=== PATIENT | female | born 1975 | race Caucasian/White ===

== ENCOUNTER 2020-08-22 08:24 | Emergency (ER) | payer SELFPAY ==
[2020-08-22] MEDS ORDERED: TORAdol 30 mg Injection ONE (08:35)
[2020-08-22] MEDS ORDERED: TORAdol 30 mg Injection IM ONE (08:35)
--- NOTE | 2020-08-22 09:01 | ERPHSYRPT ---
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 This is been present for several weeks or months usually relieved by OTC meds. The pain is primarily in the low back that radiates down the right leg and into the right foot she [facility] they did an x-ray of her foot but no x-ray of her lumbar spine she has no bowel or bright bladder problems and she denies . Timing/Duration: gradual onset, worse Method of Injury: unknown Quality: radiating, stabbing Back Pain Location: lumbar spine, paraspinous muscles Back Pain Radiation: buttocks, upper legs (right) Severity of Pain-Max: severe Severity of Pain-Current: moderate Modifying Factors: Improves With: immobilization, pain medication Associated Symptoms: numbness in legs/feet (right), muscle spasms, No urinary incontinence, No loss of bowel control, No constipation, No problems urinating Previous symptoms: same symptoms as today Allergies/Adverse Reactions: tramadol Allergy (Severe, Verified 08/22/20 08:41) anaphalactic Home Medications: Aspirin EC 81 mg [Ecotrin 81 mg] 81 mg PO DAILY 08/22/20 [History] Gabapentin 300 mg PO UD 08/22/20 [History] Travel Risk - International Travel Have you traveled outside of the country in past 3 weeks: No - Coronavirus Screening Are you exhibiting any of the following symptoms?: No Close contact with a COVID-19 positive Pt in past 14-21 Days: No - Review of Systems Constitutional: No Fever, No Chills Eyes: No Symptoms Ears, Nose, & Throat: No Symptoms Respiratory: No Cough, No Dyspnea Cardiac: No Chest Pain, No Edema, No Syncope Abdominal/Gastrointestinal: No Abdominal Pain, No Nausea, No Vomiting, No Diarrhea Genitourinary Symptoms: No Dysuria Musculoskeletal: Back Pain, No Neck Pain Skin: No Rash Neurological: Gait Changes, Parasthesia, No Dizziness, No Focal Weakness, No Sensory Changes Psychological: No Symptoms Endocrine: No Symptoms All Other Systems: Reviewed and Negative - Past Medical History Pertinent Past Medical History: Yes Endocrine Medical History: Diabetes Type II Musculoskeletal History: Fibromyalgia Other Medical History: factor 5 laden - Past Surgical History Past Surgical History: Yes Gastrointestinal: Appendectomy Female Surgical History: Section - Social History Smoking Status: Current every day smoker Exposure to second hand smoke: Yes Drug Use: none Patient Lives Alone: Yes - Female History Hx Now: No - Nursing Vital Signs Nursing Vital Signs: Initial Vital Signs Temperature 98.9 F 08/22/20 08:27 Pulse Rate 126 H 08/22/20 08:27 Blood Pressure 180/101 08/22/20 08:27 O2 Sat by Pulse Oximetry 98 08/22/20 08:27 Pain Scale Pain Intensity [Posterior Back 10 ] Pain Intensity 8 - Physical Exam General Appearance: moderate distress, alert Eye Exam: PERRL/EOMI, eyes nml inspection Neck Exam: normal inspection, non-tender, supple, full range of motion, No meningismus, No midline tenderness Respiratory Exam: normal breath sounds, lungs clear, No respiratory distress Cardiovascular Exam: regular rate/rhythm, normal heart sounds Gastrointestinal Exam: soft, No tenderness, No mass Back Exam: vertebral tenderness, decreased range of motion, muscle spasm, point tenderness, other (Lateral straight leg raising positive especially on the right.) Extremity Exam: normal inspection, normal range of motion, No calf tenderness, No pedal edema Neurologic Exam: alert, oriented x 3, cooperative, 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, normal mood/affect, sensation nml, abnormal gait, No nml station & gait, No motor deficits Skin Exam: normal color, warm, dry, No rash SpO2: 98 - Course Nursing assessment & vital signs reviewed: Yes - CT Exams Lumbar Spine CT Interpretation: Other (CT scan shows a large broad-based disc osteophyte complex seen at the L4-S1 levels slightly effacing the thecal sac and producing bilateral foraminal stenosis) Ordered Tests: Active Orders 24 hr Category Date Time Status LUMBAR SPINE W/O [CT] Routine Exams 08/22/20 10:02 Completed CULTURE,URINE Stat Lab 08/22/20 08:39 Received HCG,QUALITATIVE URINE Stat Lab 08/22/20 09:37 Completed UA W/RFX UR CULTURE Stat Lab 08/22/20 08:39 Completed Medication Summary Discontinued Medications Generic Name Dose Route Start Last Admin Trade Name Kael PRN Reason Stop Dose Admin Fentanyl Citrate 100 mcg 08/22/20 09:22 08/22/20 09:28 Sublimaze 100 Mcg/2 Ml IM 08/22/20 09:23 100 mcg STAT ONE Administration Fentanyl Citrate Confirm 08/22/20 09:27 Sublimaze 100 Mcg/2 Ml Administered 08/22/20 09:28 Dose 100 mcg .ROUTE .STK-MED ONE Hydromorphone HCl 2 mg 08/22/20 09:02 08/22/20 09:24 Hydromorphone 1 Mg/Ml Injection IM 08/22/20 09:03 Not Given STAT ONE Hydromorphone HCl Confirm 08/22/20 09:18 Hydromorphone 1 Mg/Ml Injection Administered 08/22/20 09:19 Dose 2 mg .ROUTE .STK-MED ONE Ketorolac Tromethamine 60 mg 08/22/20 08:35 08/22/20 08:38 Toradol 30 Mg Injection IM 08/22/20 08:36 60 mg STAT ONE Administration Ketorolac Tromethamine Confirm 08/22/20 08:35 Toradol 30 Mg Injection Administered 08/22/20 08:36 Dose 60 mg .ROUTE .STK-MED ONE Lab/Rad Data: Laboratory Results 08/22/20 08/22/20 Range/Units 09:37 08:39 Urine Color YELLOW (YELLOW) Urine Appearance SLIGHTLY CLOUDY (CLEAR) Urine pH 5.0 (5-6) Ur Specific Warren 1.030 (1.005-1.025) Urine Protein 100 (Negative) Urine Ketones TRACE (NEGATIVE) Urine Blood LARGE (0-5) Richardson/ul Urine Nitrite NEGATIVE (NEGATIVE) Urine Bilirubin NEGATIVE (NEGATIVE) Urine Urobilinogen NEGATIVE (0-1) mg/dL Ur Leukocyte Esterase TRACE (NEGATIVE) Urine WBC (Auto) 11-15 (0-5) /HPF Urine RBC (Auto) >101 (0-2) /HPF U Epithel Cells (Auto) FEW (FEW) /HPF Urine Bacteria (Auto) RARE (NEGATIVE) /HPF Urine Mucus (Auto) MANY (NEGATIVE) /HPF Urine Culture Reflexed YES (NO) Urine Glucose 50 (NEGATIVE) mg/dL Urine HCG, Qual NEGATIVE (Negative) - Progress Progress: improved, pain not gone completely Progress Note: 08/22/20 10:49 She was informed of her CT findings and how they relate to the pain she is experiencing she was given scripts last night for Medrol Dosepak and for Welches and for Flexeril at [facility] she is to get those filled. We will give her a list of potential primary care providers so that she can see them and perhaps get referred for an MRI. In addition she has left off work for the time being. Counseled pt/family regarding: diagnosis, need for follow-up, rad results - Departure Departure Disposition: Home Clinical Impression: Lumbar radiculopathy Condition: Stable Critical Care Time: No Instructions: Low Back Pain (DC) Forms: Work/School Release Form
[2020-08-22] MEDS ORDERED: Hydromorphone 1 mg/ml Injection IM ONE (09:02)
[2020-08-22] MEDS ORDERED: Hydromorphone 1 mg/ml Injection ONE (09:18)
[2020-08-22] MEDS: SUBLIMAZE 100 MCG/2 ML IM ONE ×2 (09:23→09:28)
[2020-08-22] MEDS ORDERED: SUBLIMAZE 100 MCG/2 ML ONE ×2 (09:27→11:04)
[2020-08-22 09:46] LABS: Appearance SLIGHTLY CLOUDY (CLEAR); Bacteria RARE /HPF (NEGATIVE); Bilirubin NEGATIVE (NEGATIVE); Blood LARGE Ery/ul (0-5); Epithelial Cells FEW /HPF (FEW); Glucose 50 mg/dL (NEGATIVE); Ketones TRACE (NEGATIVE); Leukocyte Esterase TRACE (NEGATIVE); Mucus MANY /HPF (NEGATIVE); Nitrite NEGATIVE (NEGATIVE); Protein,Urine Dip 100 (Negative); Urobilinogen NEGATIVE mg/dL (0-1)
[2020-08-22 09:49] LABS: RBC >101 /HPF (0-2)
[2020-08-22 10:04] VITALS: PULSE 96
--- NOTE | 2020-08-22 10:40 | XRAY ---
Indication: Low back pain following lifting 2 weeks ago. Multiple contiguous axial images obtained through the lumbar spine. Sagittal and coronal reformatted images obtained. Comparison: None Axial images negative for acute fracture, large disc herniation, or spinal canal stenosis. The T12-L3 disc levels demonstrates minimal anterior endplate spurring. L3-L4 level demonstrates minimal annular disc bulge. Moderate broad-based disc osteophyte complex seen at the L4-S1 levels slightly effacing the thecal sac and producing bilateral foraminal stenosis. Facets are symmetric. Sagittal and coronal reformatted images demonstrates normal lumbar lordosis with minimal dextroscoliosis centered at L3 and tiny L1-L5 Schmorl nodes. There is L5-S1 disc space loss. No acute compression fracture. Visualized noncontrasted soft tissues demonstrates minimal aortoiliac calcifications and sigmoid diverticulosis. Impression: 1. L4-S1 degenerative disc disease better evaluated with outpatient MRI. 2. Incidental minimal dextroscoliosis, tiny L1-L5 Schmorl nodes, and sigmoid diverticulosis.
[2020-08-22 10:53] VITALS: O2SAT 98
[2020-08-22] MEDS ORDERED: SUBLIMAZE 100 MCG/2 ML IM ONE (10:58)
[2020-08-22 11:34] VITALS: BP 137/63
== END 2020-08-22 11:33 | disposition home or self-care (01) ==
LOC: ED 08:24
DX: M54.16 Radiculopathy, lumbar region (principal); Z79.899 Other long term (current) drug therapy
CPT/HCPCS: 72131; 81001; 84703; 87086; 96372; 99284; J1170; J1885; J3010